=== PATIENT | male | born 1965 | race Caucasian/White ===

== ENCOUNTER 2023-09-24 16:08 | Inpatient (IN) | payer MEDICARE ==
[2023-09-24 17:15] LABS: #Basophils Less than 0.03 10x3/uL (0.0-0.2); %Basophils 0.3 % (0.0-1.0); %Eosinophils 4.1 % (0.0-10.0); %Lymphocytes 34.5 % (21.0-51.0); %Neutrophils 52.8 % (42.0-75.0); Hematocrit 43.1 % (42.0-52.0); Hemoglobin 14.4 g/dL (14.0-18.0); Mean Corpuscular HGB CONC 33.4 g/dL (32.0-36.0); Mean Corpuscular Hemoglobin 27.5 pg (27.0-31.0); Mean Corpuscular Volume 82.4 fL (78.0-98.0); Mean Platelet Volume 9.8 fL (7.4-10.4); Platelet Count 202 10x3/uL (130-400); RBC Distribution Width 15.5 % (11.5-14.5); Red Blood Cell (RBC) Count 5.23 mill/uL (4.70-6.10)
[2023-09-24 17:33] LABS: ALT (SGPT) 12 U/L (8-55); AST (SGOT) 19 U/L (5-34); Alkaline Phosphatase 72 U/L (40-110); Anion Gap 17 mmol/L (10-20); BUN (Urea Nitrogen) 16 mg/dL (8.4-25.7); Bilirubin, Total 0.4 mg/dL (0.2-1.2); Calc. Creatinine Clearance 0 mL/min (70-130); Calcium 9.5 mg/dL (7.8-10.44); Carbon Dioxide 18 mmol/L (22-29); Chloride 110 mmol/L (98-107); Estimated GFR 87; Globulin 3.3 g/dL (2.4-3.5); Glucose 97 mg/dL (70-105); Protein, Total 7.3 g/dL (6.0-8.3); Sodium 141 mmol/L (136-145)
[2023-09-24 17:37] LABS: Troponin I 0.118 ng/mL (< 0.028)
[2023-09-24] MEDS ORDERED: Nitroglycerin 0.4 MG TAB (25 Tab Bottle) SL PRN (20:33)
[2023-09-24 21:58] VITALS: BMI 38.9
[2023-09-24] MEDS ORDERED: Ondansetron PF 4 MG/2 ML Vial IVP PRN (22:31)
[2023-09-24] MEDS ORDERED: Ondansetron ODT 4 MG TAB PO PRN (22:31)
[2023-09-24] MEDS ORDERED: Acetaminophen 325 MG TAB PO PRN (22:31)
[2023-09-24] MEDS ORDERED: Nicotine 14 MG PATCH TD PRN (22:32)
[2023-09-24 22:48] LABS: Critical Call Chem Troponin I NUR.DMM@2247; Troponin I 1.512 ng/mL (< 0.028)
[2023-09-25] MEDS: Dextrose 5%-Lactated Ringers 1,000 ML IV SCH (00:12)
[2023-09-25] MEDS: Enoxaparin 80 MG (0.8 mL) SYRINGE SC SCH ×2 (00:17→11:58)
[2023-09-25 04:39] LABS: #Basophils Less than 0.03 10x3/uL (0.0-0.2); %Basophils 0.3 % (0.0-1.0); %Eosinophils 4.4 % (0.0-10.0); %Lymphocytes 50.5 % (21.0-51.0); %Monocytes 7.1 % (0.0-10.0); %Neutrophils 37.6 % (42.0-75.0); Hematocrit 39.9 % (42.0-52.0); Hemoglobin 13.2 g/dL (14.0-18.0); Mean Corpuscular HGB CONC 33.1 g/dL (32.0-36.0); Mean Corpuscular Hemoglobin 27.6 pg (27.0-31.0); Mean Corpuscular Volume 83.3 fL (78.0-98.0); Mean Platelet Volume 9.5 fL (7.4-10.4); Platelet Count 179 10x3/uL (130-400); RBC Distribution Width 15.4 % (11.5-14.5); Red Blood Cell (RBC) Count 4.79 mill/uL (4.70-6.10)
[2023-09-25 05:00] LABS: ALT (SGPT) 11 U/L (8-55); AST (SGOT) 27 U/L (5-34); Albumin 3.5 g/dL (3.5-5.0); Alkaline Phosphatase 67 U/L (40-110); Anion Gap 14 mmol/L (10-20); BUN (Urea Nitrogen) 15 mg/dL (8.4-25.7); Bilirubin, Total 0.3 mg/dL (0.2-1.2); Calc. Creatinine Clearance 218 mL/min (70-130); Calcium 8.7 mg/dL (7.8-10.44); Carbon Dioxide 19 mmol/L (22-29); Chloride 110 mmol/L (98-107); Estimated GFR 102; Globulin 2.8 g/dL (2.4-3.5); Glucose 112 mg/dL (70-105); Potassium 3.8 mmol/L (3.5-5.1); Protein, Total 6.3 g/dL (6.0-8.3); Sodium 139 mmol/L (136-145)
[2023-09-25 05:15] LABS: Critical Call Chem Troponin I NUR.DMM@0515; Troponin I 3.156 ng/mL (< 0.028)
[2023-09-25] MEDS ORDERED: Iopamidol 370 76% 100 ML VIAL ONE (09:12)
[2023-09-25] MEDS: Aspirin Chewable 81 MG TAB PO SCH (09:18)
[2023-09-25] MEDS: Famotidine 20 MG TAB PO SCH (09:18)
[2023-09-25] MEDS: Famotidine/PF 20 mg/2ml Vial SLOW IVP SCH (09:23)
[2023-09-25] MEDS ORDERED: Heparin 10,000 UNITS/ 10 ML VIAL ONE (12:43)
[2023-09-25] MEDS ORDERED: Nitroglycerin 50 MG/250 ML BOT 0 ML ONE (12:43)
[2023-09-25] MEDS ORDERED: Adenosine 6 mg (2 mL) VIAL ONE (12:43)
[2023-09-25] MEDS ORDERED: CATH FS PRN (12:45)
[2023-09-25] MEDS ORDERED: Midazolam HCl 2 mg/2 ml Vial ONE ×2 (13:15→14:01)
[2023-09-25] MEDS ORDERED: fentaNYL 50 mcg/mL 1 mL Vial ONE ×3 (13:15→14:19)
[2023-09-25 13:47] LABS: Amphetamine Not Detected (NotDetected); Barbiturates Screen Not Detected (NotDetected); Benzodiazepine Screen Not Detected (NotDetected); Cocaine Metabolite Screen Not Detected (NotDetected); Methadone Not Detected (NotDetected); Methamphetamine Not Detected (NotDetected); Opiate Screen Not Detected (NotDetected); Oxycodone Screen Not Detected (NotDetected); Phencyclidine (PCP) Not Detected (NotDetected); THC/Cannabinoid Screen Detected (NotDetected); Tricyclic Screen Not Detected (NotDetected)
[2023-09-25] MEDS: Sodium Chloride 0.9% 500 ML IV SCH (13:55)
[2023-09-25] MEDS ORDERED: Clopidogrel Bisulfate 300 MG TAB ONE (13:57)
[2023-09-25] MEDS: Sodium Chloride 0.9% 250 ML IV SCH (15:37)
[2023-09-25] MEDS: Carvedilol 3.125 MG TAB PO SCH (17:36)
[2023-09-25] MEDS: Rosuvastatin 20 MG TAB PO SCH (21:37)
[2023-09-25] MEDS: Sacubitril 24MG/Valsartan 26 MG TAB PO SCH (21:38)
[2023-09-25] MEDS: traMADol HCl 50 MG TAB PO SCH (23:36)
[2023-09-26] MEDS: traMADol HCl 50 MG TAB PO SCH (04:48)
[2023-09-26 04:54] LABS: #Basophils Less than 0.03 10x3/uL (0.0-0.2); %Basophils 0.2 % (0.0-1.0); %Lymphocytes 39.7 % (21.0-51.0); %Monocytes 8.2 % (0.0-10.0); %Neutrophils 47.7 % (42.0-75.0); Hematocrit 42.1 % (42.0-52.0); Hemoglobin 13.6 g/dL (14.0-18.0); Mean Corpuscular HGB CONC 32.3 g/dL (32.0-36.0); Mean Corpuscular Hemoglobin 27.1 pg (27.0-31.0); Mean Platelet Volume 10.3 fL (7.4-10.4); Platelet Count 178 10x3/uL (130-400); RBC Distribution Width 15.6 % (11.5-14.5); Red Blood Cell (RBC) Count 5.01 mill/uL (4.70-6.10)
[2023-09-26 05:19] LABS: ALT (SGPT) 17 U/L (8-55); AST (SGOT) 31 U/L (5-34); Albumin 3.7 g/dL (3.5-5.0); Alkaline Phosphatase 65 U/L (40-110); Anion Gap 15 mmol/L (10-20); BUN (Urea Nitrogen) 11 mg/dL (8.4-25.7); Bilirubin, Total 0.4 mg/dL (0.2-1.2); Calc. Creatinine Clearance 205 mL/min (70-130); Calcium 8.9 mg/dL (7.8-10.44); Carbon Dioxide 17 mmol/L (22-29); Chloride 109 mmol/L (98-107); Cholesterol 224 mg/dl (< 200 Desired); Estimated GFR 100; Globulin 3.1 g/dL (2.4-3.5); Glucose 108 mg/dL (70-105); HDL Cholesterol 32 mg/dL (>60 Neg Risk); LDL Cholesterol, Calculated 152 mg/dL; Potassium 4.1 mmol/L (3.5-5.1); Protein, Total 6.8 g/dL (6.0-8.3); Sodium 137 mmol/L (136-145); Triglycerides 201 mg/dL (Less than 150)
[2023-09-26] MEDS: Clopidogrel Bisulfate 75 MG TAB PO SCH (08:08)
[2023-09-26 11:39] VITALS: BP 138/96; TEMP 97.9
== END 2023-09-26 14:33 | disposition home or self-care (01) | DRG 322 ==
LOC: ERS 16:08 → 2NO 20:42 → OBSVTOIN 09-25 10:40
PROVIDERS: ADMIT Student in an Organized Health Care Education/Training Program; ATTEND Internal Medicine
PROC: 4A023N7 Measurement of Cardiac Sampling and Pressure, Left Heart, Percutaneous Approach (ICD-10-PCS; principal; 2023-09-25)
PROC: 027035Z Dilation of Coronary Artery, One Artery with Two Drug-eluting Intraluminal Devices, Percutaneous Approach (ICD-10-PCS; 2023-09-25)
PROC: B2151ZZ Fluoroscopy of Left Heart using Low Osmolar Contrast (ICD-10-PCS; 2023-09-25)
PROC: B2111ZZ Fluoroscopy of Multiple Coronary Arteries using Low Osmolar Contrast (ICD-10-PCS; 2023-09-25)
DX: I21.4 Non-ST elevation (NSTEMI) myocardial infarction (principal); I42.0 Dilated cardiomyopathy; I25.110 Atherosclerotic heart disease of native coronary artery with unstable angina pectoris; F17.210 Nicotine dependence, cigarettes, uncomplicated; E78.5 Hyperlipidemia, unspecified; Z88.5 Allergy status to narcotic agent; Z95.1 Presence of aortocoronary bypass graft; Z95.5 Presence of coronary angioplasty implant and graft; Z88.8 Allergy status to other drugs, medicaments and biological substances; Z90.49 Acquired absence of other specified parts of digestive tract; Z91.148 Patient's other noncompliance with medication regimen for other reason; Z79.82 Long term (current) use of aspirin; Z79.899 Other long term (current) drug therapy
CPT/HCPCS: 36415; 71045; 80053; 80061; 80306; 84484; 85025; 92937; 93005; 93010; 93306; 93459; 93798; 96372; 99152; 99153; C1760; C1769; C1874; C1887; C9604; G0378; J0153; J1644; J1650; J2250; J3010; J7030; Q9967

== ENCOUNTER 2024-04-15 14:32 | Outpatient (CLI) | payer MEDICARE ==
[2024-04-15 16:28] LABS: #Basophils 0.03 10x3/uL (0.0-0.2); %Basophils 0.4 % (0.0-1.0); %Eosinophils 4.7 % (0.0-10.0); %Lymphocytes 40.3 % (21.0-51.0); %Monocytes 6.6 % (0.0-10.0); %Neutrophils 47.7 % (42.0-75.0); Hematocrit 42.4 % (42.0-52.0); Hemoglobin 13.6 g/dL (14.0-18.0); Mean Corpuscular HGB CONC 32.1 g/dL (32.0-36.0); Mean Corpuscular Hemoglobin 26.9 pg (27.0-31.0); Mean Corpuscular Volume 83.8 fL (78.0-98.0); Platelet Count 159 10x3/uL (130-400); Red Blood Cell (RBC) Count 5.06 mill/uL (4.70-6.10)
[2024-04-15 16:41] LABS: Anion Gap 11 mmol/L (10-20); BUN (Urea Nitrogen) 11 mg/dL (8.4-25.7); Calc. Creatinine Clearance 0 mL/min (70-130); Calcium 8.9 mg/dL (7.8-10.44); Carbon Dioxide 22 mmol/L (22-29); Chloride 109 mmol/L (98-107); Estimated GFR 102; Glucose 85 mg/dL (70-105); Potassium 4.1 mmol/L (3.5-5.1); Sodium 138 mmol/L (136-145)
[2024-04-15 16:42] LABS: INR-International Normal Ratio 1.2; PTT 30.2 sec (22.9-36.1); Prothrombin Time 15.2 sec (12.0-14.7)
== END 2024-04-15 14:33 | disposition home or self-care (01) ==
LOC: LABBT 14:32
PROVIDERS: ATTEND Internal Medicine Cardiovascular Disease
DX: Z01.812 Encounter for preprocedural laboratory examination (principal); I50.22 Chronic systolic (congestive) heart failure
CPT/HCPCS: 80048; 85025; 85610; 85730

== ENCOUNTER 2024-04-19 08:33 | Day surgery (SDC) | payer MEDICARE ==
[2024-04-15 15:33] VITALS: BMI 38.0
[2024-04-19] MEDS ORDERED: Gentamicin 80 MG/2 ML VIAL ONE (08:35)
[2024-04-19] MEDS ORDERED: Iopamidol 370 76% 100 ML VIAL ONE (08:56)
[2024-04-19] MEDS ORDERED: Vancomycin 1 GM/200 ML (FROZEN) BAG ONE (09:20)
[2024-04-19] MEDS ORDERED: Midazolam HCl 2 mg/2 ml Vial ONE (09:42)
[2024-04-19] MEDS ORDERED: Propofol 1,000 MG/100 ML VIAL IV ONE (09:43)
[2024-04-19] MEDS ORDERED: fentaNYL PF 100 MCG/2 ML SYRINGE ONE ×2 (09:43→12:14)
[2024-04-19] MEDS ORDERED: KETAMINE 100 MG/ML (5ML VIAL) ONE (09:43)
[2024-04-19] MEDS ORDERED: Glycopyrrolate 0.2 MG/ML 5 ML SYRINGE ONE (09:54)
[2024-04-19] MEDS ORDERED: Doxycycline 100 MG CAP PO SCH (21:00)
== END 2024-04-19 15:02 | disposition home or self-care (01) ==
LOC: SDC 08:33
PROVIDERS: ATTEND Internal Medicine Cardiovascular Disease
PROC: 02PA3MZ Removal of Cardiac Lead from Heart, Percutaneous Approach (ICD-10-PCS; principal; 2024-04-19)
PROC: 02HL3JZ Insertion of Pacemaker Lead into Left Ventricle, Percutaneous Approach (ICD-10-PCS; 2024-04-19)
DX: I11.0 Hypertensive heart disease with heart failure (principal); I50.22 Chronic systolic (congestive) heart failure; I25.2 Old myocardial infarction; I25.10 Atherosclerotic heart disease of native coronary artery without angina pectoris; E78.5 Hyperlipidemia, unspecified; F17.200 Nicotine dependence, unspecified, uncomplicated; Z95.0 Presence of cardiac pacemaker; Z95.5 Presence of coronary angioplasty implant and graft; Z95.1 Presence of aortocoronary bypass graft; Z90.49 Acquired absence of other specified parts of digestive tract; Z91.030 Bee allergy status; Z88.8 Allergy status to other drugs, medicaments and biological substances; Z88.5 Allergy status to narcotic agent; Z88.0 Allergy status to penicillin; Z88.1 Allergy status to other antibiotic agents; Z79.82 Long term (current) use of aspirin; Z79.02 Long term (current) use of antithrombotics/antiplatelets; Z79.899 Other long term (current) drug therapy
CPT/HCPCS: 33224; 33234; 71045; 93005; 93642; C1763; C1769 ×2; J1580; J2250; J2704; J3370; 93640

== ENCOUNTER 2024-12-02 11:13 | Inpatient (IN) | payer OTHER ==
[2024-12-02 11:50] LABS: #Basophils Less than 0.03 10x3/uL (0.0-0.2); #Eosinophils Less than 0.03 10x3/uL (0.0-0.7); #Monocytes 0.47 10x3/uL (0.11-0.59); #Neutrophils 4.93 10x3/uL (1.40-6.50); %Basophils 0.1 % (0.0-1.0); %Eosinophils 0.3 % (0.0-10.0); %Lymphocytes 20.1 % (21.0-51.0); %Monocytes 6.9 % (0.0-10.0); %Neutrophils 72.3 % (42.0-75.0); Hematocrit 32.8 % (42.0-52.0); Hemoglobin 10.6 g/dL (14.0-18.0); Mean Corpuscular Hemoglobin 26.1 pg (27.0-31.0); Mean Corpuscular Volume 80.8 fL (78.0-98.0); Platelet Count 347 10x3/uL (130-400); Red Blood Cell (RBC) Count 4.06 mill/uL (4.70-6.10); White Blood Cell (WBC) Count 6.82 10x3/uL (4.8-10.8)
[2024-12-02 12:11] LABS: Troponin I Less than 0.010 ng/mL (< 0.028)
[2024-12-02 12:18] LABS: ALT (SGPT) 15 U/L (Less than 45); AST (SGOT) 31 U/L (11-34); Albumin 3.4 g/dL (3.1-4.5); Alkaline Phosphatase 124 U/L (40-110); Anion Gap 16 mmol/L (10-20); BUN (Urea Nitrogen) 10 mg/dL (8.4-25.7); Bilirubin, Total 0.6 mg/dL (0.3-1.2); Calc. Creatinine Clearance 0 mL/min (70-130); Calcium 9.0 mg/dL (7.8-10.44); Carbon Dioxide 19 mmol/L (22-29); Chloride 105 mmol/L (98-107); Globulin 5.1 g/dL (2.4-3.5); Glucose 94 mg/dL (70-105); Lipase 45 U/L (8-78); Potassium 4.4 mmol/L (3.5-5.1); Sodium 136 mmol/L (136-145)
[2024-12-02] MEDS ORDERED: Calcium Carbonate 500 MG ChewTAB PO PRN (15:17)
[2024-12-02] MEDS ORDERED: Senokot S 8.6-50 MG TAB PO PRN (15:17)
[2024-12-02] MEDS ORDERED: Electrolyte Replacement Protocol 1 EACH FS SCH (15:30)
[2024-12-02 16:56] VITALS: BMI 30.5
[2024-12-02] MEDS: Vancomycin (BATCH) 2.5 GM in Premix 1 BAG IVPB SCH (18:24)
[2024-12-02] MEDS: Pantoprazole 40 MG VIAL IVP SCH (18:26)
[2024-12-02] MEDS: Vancomycin HCl 1.25 GM in Sodium Chloride 0.9% 250 ML 250 ML IVPB SCH (23:18)
[2024-12-03 04:50] LABS: #Basophils Less than 0.03 10x3/uL (0.0-0.2); #Eosinophils 0.04 10x3/uL (0.0-0.7); #Monocytes 0.75 10x3/uL (0.11-0.59); #Neutrophils 3.23 10x3/uL (1.40-6.50); %Basophils 0.4 % (0.0-1.0); %Eosinophils 0.7 % (0.0-10.0); %Lymphocytes 28.9 % (21.0-51.0); %Monocytes 13.2 % (0.0-10.0); %Neutrophils 56.6 % (42.0-75.0); Hematocrit 29.3 % (42.0-52.0); Hemoglobin 9.2 g/dL (14.0-18.0); Mean Corpuscular Hemoglobin 25.6 pg (27.0-31.0); Mean Corpuscular Volume 81.6 fL (78.0-98.0); Platelet Count 302 10x3/uL (130-400); Red Blood Cell (RBC) Count 3.59 mill/uL (4.70-6.10); White Blood Cell (WBC) Count 5.70 10x3/uL (4.8-10.8)
[2024-12-03 05:16] LABS: Vancomycin, Random 16.7 ug/mL (See Comment)
[2024-12-03 05:23] LABS: Anion Gap 15 mmol/L (10-20); BUN (Urea Nitrogen) 11 mg/dL (8.4-25.7); Calc. Creatinine Clearance 185 mL/min (70-130); Calcium 8.7 mg/dL (7.8-10.44); Carbon Dioxide 19 mmol/L (22-29); Chloride 107 mmol/L (98-107); Glucose 104 mg/dL (70-105); Potassium 3.9 mmol/L (3.5-5.1); Sodium 137 mmol/L (136-145)
[2024-12-03] MEDS ORDERED: Pantoprazole 40 MG DR.TAB PO SCH (09:00)
[2024-12-03] MEDS: Ezetimibe 10 MG TAB PO SCH (09:10)
[2024-12-03] MEDS: Rosuvastatin 20 MG TAB PO SCH (09:10)
[2024-12-03] MEDS: Pantoprazole 40 MG DR.TAB PO SCH (09:10)
[2024-12-03 15:33] VITALS: BMI 30.2
[2024-12-03] MEDS: Carvedilol 3.125 MG TAB PO SCH (18:26)
[2024-12-04] MEDS: Ketorolac Tromethamine 30 MG (1 mL) VIAL IVP SCH (02:15)
[2024-12-05] MEDS: Enoxaparin 40 MG (0.4 mL) SYRINGE SC SCH (13:27)
[2024-12-05] MEDS: Acetaminophen 325 MG TAB PO PRN (16:17)
[2024-12-05] MEDS: Ondansetron PF 4 MG/2 ML Vial IVP PRN (21:14)
[2024-12-06] MEDS: Enoxaparin 40 MG (0.4 mL) SYRINGE SC SCH (09:13)
[2024-12-06] MEDS ORDERED: Iopamidol-370 76% 500 ML MDV (1 ML CHARGE) ONE (12:25)
[2024-12-06 13:44] LABS: Glucose, Urine (Dipstick) Normal (Negative); Leukocyte Negative Leu/uL (Negative); Protein, Urine (Dipstick) 10 mg/dL (Neg-Trace); Specific Gravity, Urine 1.020 (1.002-1.036)
[2024-12-06 18:47] LABS: #Basophils Less than 0.03 10x3/uL (0.0-0.2); #Eosinophils 0.03 10x3/uL (0.0-0.7); #Monocytes 0.64 10x3/uL (0.11-0.59); #Neutrophils 3.93 10x3/uL (1.40-6.50); %Basophils 0.3 % (0.0-1.0); %Eosinophils 0.5 % (0.0-10.0); %Lymphocytes 23.8 % (21.0-51.0); %Monocytes 10.5 % (0.0-10.0); %Neutrophils 64.4 % (42.0-75.0); Hematocrit 32.0 % (42.0-52.0); Hemoglobin 10.1 g/dL (14.0-18.0); Mean Corpuscular Hemoglobin 25.8 pg (27.0-31.0); Mean Corpuscular Volume 81.6 fL (78.0-98.0); Platelet Count 287 10x3/uL (130-400); Red Blood Cell (RBC) Count 3.92 mill/uL (4.70-6.10); White Blood Cell (WBC) Count 6.10 10x3/uL (4.8-10.8)
[2024-12-06] MEDS: Melatonin 3 MG TAB PO PRN (20:32)
[2024-12-06 21:42] VITALS: TEMP 98
[2024-12-06 23:55] VITALS: BP 122/82
== END 2024-12-07 02:00 | disposition short-term general hospital (02) | DRG 863 ==
LOC: ERS 11:13 → 2NO 14:29
PROVIDERS: ADMIT Internal Medicine; ATTEND Internal Medicine
DX: T81.41XA Infection following a procedure, superficial incisional surgical site, initial encounter (principal); I50.42 Chronic combined systolic (congestive) and diastolic (congestive) heart failure; R78.81 Bacteremia; E78.5 Hyperlipidemia, unspecified; I25.10 Atherosclerotic heart disease of native coronary artery without angina pectoris; I11.0 Hypertensive heart disease with heart failure; M54.89 Other dorsalgia; F17.200 Nicotine dependence, unspecified, uncomplicated; I25.5 Ischemic cardiomyopathy; B96.4 Proteus (mirabilis) (morganii) as the cause of diseases classified elsewhere; R11.0 Nausea; I25.2 Old myocardial infarction; Z98.890 Other specified postprocedural states; Z88.5 Allergy status to narcotic agent; Z88.0 Allergy status to penicillin; Z88.8 Allergy status to other drugs, medicaments and biological substances; Z88.1 Allergy status to other antibiotic agents; Z95.1 Presence of aortocoronary bypass graft; Z79.899 Other long term (current) drug therapy
CPT/HCPCS: 36415; 71045; 71260; 80048; 80053; 80202; 81003; 83605; 83690; 84484; 85025; 87040; 87070; 87077; 87081; 87149; 87186; 87205; 96374; 96375; 97139; J0692; J1650; J1885; J2270; J2405; J2470; J3373; J7050; Q0162; Q9967